=== PATIENT | female | born 1945 | race Caucasian/White ===

== ENCOUNTER → 2017-08-19 | Outpatient (CLI) | payer MEDICARE, BC ==
--- NOTE | 2017-08-19 17:44 | WOMENS IMAGING REPORT ---
EXAM DESCRIPTION: BILAT SCREENING MAMMO W/CAD COMPLETED DATE/TIME: 08/19/2017 1:46 pm REASON FOR STUDY: SCREENING MAMMO Z12.31 ENCNTR SCREEN MAMMOGRAM FOR MALIGNANT NEOPLASM OF KELLY COMPARISON: Multiple since 2008 TECHNIQUE: Standard craniocaudal and mediolateral oblique views of each breast recorded using digita l acquisition. LIMITATIONS: None. FINDINGS: Findings present which are benign by mammographic criteria. No suspicious masses, calcifi cations or architectural distortion. Pertinent benign findings: Old surgical clips deep central left breast. Read with the assistance of CAD. .[facility] - R2 Cenova Version 1.3 .[facility] - R2 Cenova Version 1.3 .[facility] - R2 Cenova Version 2.4 .[facility] [place] R2 Cenova Version 2.4 .[facility] - R2 Junior Net Developer Version 9.2 Benign mammographic findings may include one or more of the following: Smooth masses, popcorn/rim/co arse calcifications, asymmetries, post-procedure changes, and lesions with long-standing stability. IMPRESSION: BENIGN MAMMOGRAPHIC FINDINGS. BIRADS 2 BREAST DENSITY: b. There are scattered areas of fibroglandular density. BIRAD: 2 BENIGN FINDING(S) RECOMMENDATION: ROUTINE SCREENING Please continue yearly bilateral screening mammography in August 2018. Please consider bilateral sc reening tomosynthesis COMMENT: The patient has been notified of the results by letter per MQSA requirements. Additional no tification policies are in place for contacting patient with suspicious or incomplete findings. Quality ID #[id number]: The [employer] recommends an annual screening mammogram for women aged 40 years or over. This facility utilizes a reminder system to ensure that all patients receive reminder letters, and/or direct phone calls for appointments. This includes reminders for routine scr eening mammograms, diagnostic mammograms, or other Breast Imaging Interventions when appropriate. Th is patient will be placed in the appropriate reminder system. The [employer] (ACR) has developed recommendations for screening MRI of the breast s in certain patient populations, to be used in conjunction with mammography. Breast MRI surveillanc e may be appropriate for women with more than 20% lifetime risk of developing breast cancer as deter mined by genetic testing, significant family history of the disease, or history of mantle radiation f or Hodgkins Disease. ACR Practice Guidelines 2008. TECHNICAL DOCUMENTATION: FINDING NUMBER: (1) ASSESSMENT: (1) JOB ID: [id number] [employer]- All Rights Reserved
== END ==
LOC: WI 13:09
PROVIDERS: ATTEND Internal Medicine
DX: Z12.31 Encounter for screening mammogram for malignant neoplasm of breast (principal)
CPT/HCPCS: 77067; G0202

== ENCOUNTER 2018-05-11 10:29 | Emergency (ER) | payer MEDICARE, BC ==
--- NOTE | 2018-05-11 10:53 | ER Document Report ---
ED Medical Screen (RME) - General Chief Complaint: Chest Pain Stated Complaint: CHEST PAIN Mode of Arrival: Wheelchair Information source: Patient Notes: 72 y.o female with a PMHx of presents to the ED with CP of onset this morning about 30 minutes ago. Pt reports pain to her RT sided chest and denies any radiation. Pt reports that she just got over a cold. Pt reports some hot flashes, lightheaded and a "gassy feeling". She denies any hx of LA or stroke. Pt's PCP is Dr. Monroy. I have greeted and performed a rapid initial assessment of the patient. A comprehensive ED assessment and evaluation of the patient, analysis of test results, and completion of the medical decision making process will be conducted by additional ED providers. Physical Exam: Cardiovascular: Regular rate and rhythm. Respiratory: No respiratory distress. Clear and equal breath sounds bilaterally. TRAVEL OUTSIDE OF THE [place] IN LAST 30 DAYS: No - Related Data Allergies/Adverse Reactions: acetaminophen [From Percocet] Allergy (Intermediate, Verified 05/11/18 10:31) oxycodone HCl [From Percocet] Allergy (Intermediate, Verified 05/11/18 10:31) Past Medical History - Past Medical History Cardiac Medical History: Reports: Hx Hypertension Psychiatric Medical History: Reports: Hx Depression Past Surgical History: Reports: Hx Appendectomy, Hx Section - x3, Hx Orthopedic Surgery - hip replacement 2000, Hx Tubal Ligation. Denies: Hx Pacemaker - Immunizations Hx Diphtheria, Pertussis, Tetanus Vaccination: - unknown Physical Exam - Vital signs Vitals: Temp Pulse Resp BP Pulse Ox 97.9 F 87 18 120/75 100 05/11/18 10:43 05/11/18 10:43 05/11/18 10:43 05/11/18 10:43 05/11/18 10:43 Course - Vital Signs Vital signs: Temp Pulse Resp BP Pulse Ox 97.9 F 87 18 120/75 100 05/11/18 10:43 05/11/18 10:43 05/11/18 10:43 05/11/18 10:43 05/11/18 10:43 Doctor's Discharge - Discharge Referrals: ISABELLA MONROY MD [Primary Care Provider] - Follow up as needed Scribe Documentation - Scribe Written by Scribe:: Acosta Topete 05/11/18 1053 acting as scribe for :: Jeffy
--- NOTE | 2018-05-11 11:09 | ER Document Report ---
ED General - General Chief Complaint: Chest Pain Stated Complaint: CHEST PAIN Time Seen by Provider: 05/11/18 10:50 Mode of Arrival: Wheelchair Information source: Patient, Relative Notes: 72-year-old female with hypertension, depression, anxiety presents via private vehicle from home with complaint of right sided chest pain that occurred approximately 1 hour prior to arrival while at rest. Patient states that she had a "episode" where she became flushed, lightheaded, anxious and experienced chest pressure that lasted approximately 40 minutes and self resolved. Patient states that this episode felt very similar to previous anxiety attacks although she cannot tell me what was making her anxious today. She has had multiple prior similar symptoms. She is currently on antidepressant but denies any suicidal or homicidal ideation. Patient states that she recently got over an upper respiratory illness which included nasal congestion, productive cough. Patient denies any fever, chills, nausea, vomiting, current chest pain. She states that she felt better after she passed a lot of gas. TRAVEL OUTSIDE OF THE [place] IN LAST 30 DAYS: No - HPI Onset: Just prior to arrival Onset/Duration: Gradual, Gone Quality of pain: Pressure Severity: None Pain Level: Denies Associated symptoms: Chest pain, Productive cough, Sinus pain/drainage. denies : Fever, Headache, Leg swelling, Nausea, Vomiting Exacerbated by: Denies Relieved by: Denies Similar symptoms previously: Yes Recently seen / treated by doctor: Yes - Related Data Allergies/Adverse Reactions: acetaminophen [From Percocet] Allergy (Intermediate, Verified 05/11/18 10:31) oxycodone HCl [From Percocet] Allergy (Intermediate, Verified 05/11/18 10:31) Past Medical History - General Information source: Patient - Social History Smoking Status: Never Smoker Chew tobacco use (# tins/day): No Frequency of alcohol use: None Drug Abuse: None Lives with: Spouse/Significant other Family History: Reviewed & Not Pertinent Patient has suicidal ideation: No Patient has homicidal ideation: No - Past Medical History Cardiac Medical History: Reports: Hx Hypertension Renal/ Medical History: Denies: Hx Peritoneal Dialysis Psychiatric Medical History: Reports: Hx Depression Past Surgical History: Reports: Hx Appendectomy, Hx Section - x3, Hx Orthopedic Surgery - hip replacement 2000, Hx Tubal Ligation. Denies: Hx Pacemaker - Immunizations Hx Diphtheria, Pertussis, Tetanus Vaccination: - unknown Hx Pneumococcal Vaccination: 11/08/06 Review of Systems - Review of Systems Notes: REVIEW OF SYSTEMS: CONSTITUTIONAL : Denies fever, chills, or sweats. Denies recent illness. Denies weight loss, recent hospitalizations. EENT: Denies visual changes, eye pain. Denies nasal or sinus congestion or discharge. Denies sore throat, oral lesions, difficulty swallowing. CARDIOVASCULAR: Denies chest pain. Denies palpitations. Denies lower extremity edema. RESPIRATORY: Denies cough, cold, or chest congestion. Denies shortness of breath, wheezing. GASTROINTESTINAL: Denies abdominal pain or distention. Denies nausea, vomiting , or diarrhea. Denies blood in vomitus, stools, or per rectum. Denies black, tarry stools. Denies constipation. GENITOURINARY: Denies difficulty urinating, painful urination, frequency, blood in urine, or vaginal discharge. MUSCULOSKELETAL: Denies back or neck pain or stiffness. Denies joint pain or swelling. SKIN: Denies rash, lesions or sores. HEMATOLOGIC : Denies easy bruising or bleeding. LYMPHATIC: Denies swollen glands. NEUROLOGICAL: Denies confusion or altered mental status. Denies passing out or loss of consciousness. Denies dizziness or lightheadedness. Denies headache. Denies weakness or paralysis. Denies problems difficulty with ambulation, slurred speech. Denies sensory loss, numbness, or tingling. Denies seizures. PSYCHIATRIC: Denies anxiety or stress. Denies depression, suicidal ideation, or homicidal ideation. Denies visual or auditory hallucinations. Physical Exam - Vital signs Vitals: Temp Pulse Resp BP Pulse Ox 97.9 F 87 18 120/75 100 05/11/18 10:43 05/11/18 10:43 05/11/18 10:43 05/11/18 10:43 05/11/18 10:43 Interpretation: Normal. No: Hypertensive, Hypoxic, Febrile - Notes Notes: PHYSICAL EXAMINATION: GENERAL: Well-appearing, well-nourished and in no acute distress. HEAD: Atraumatic, normocephalic. EYES: Pupils equal round and reactive to light, extraocular movements intact, conjunctiva are normal. ENT: Nares patent, oropharynx clear without exudates. Moist mucous membranes. NECK: Normal range of motion, supple without lymphadenopathy LUNGS: Breath sounds clear to auscultation bilaterally and equal. No wheezes rales or rhonchi. HEART: Regular rate and rhythm without murmurs ABDOMEN: Soft, nontender, nondistended abdomen. No guarding, no rebound. No masses appreciated. Female : deferred Musculoskeletal: Normal range of motion, no pitting or edema. No cyanosis. NEUROLOGICAL: Cranial nerves grossly intact. Normal speech, normal gait. Normal sensory, motor exams PSYCH: Normal mood, normal affect. SKIN: Warm, Dry, normal turgor, no rashes or lesions noted. Course - Re-evaluation Re-evalutation: Laboratory 05/11/18 05/11/18 05/11/18 11:10 11:10 11:10 WBC 4.8 RBC 4.71 Hgb 14.7 Hct 43.0 MCV 91 MCH 31.2 MCHC 34.2 RDW 14.1 H Plt Count 197 Seg Neutrophils % 67.3 Lymphocytes % 22.5 Monocytes % 7.4 Eosinophils % 1.5 Basophils % 1.3 Absolute Neutrophils 3.2 Absolute Lymphocytes 1.1 Absolute Monocytes 0.4 Absolute Eosinophils 0.1 Absolute Basophils 0.1 Sodium 143.0 Potassium 4.6 Chloride 106 Carbon Dioxide 24 Anion Gap 13 BUN 17 Creatinine 0.97 Est GFR ( Amer) > 60 Est GFR (Non-Af Amer) 56 L Glucose 89 Calcium 9.4 Magnesium 2.2 Total Bilirubin 0.7 Direct Bilirubin 0.4 Neonat Total Bilirubin Not Reportable Neonat Direct Bilirubin Not Reportable Neonat Indirect Bili Not Reportable AST 23 ALT 16 Alkaline Phosphatase 101 Troponin I < 0.012 NT-Pro-B Natriuret Pep 93 Total Protein 7.1 Albumin 4.5 05/11/18 14:55 WBC RBC Hgb Hct MCV MCH MCHC RDW Plt Count Seg Neutrophils % Lymphocytes % Monocytes % Eosinophils % Basophils % Absolute Neutrophils Absolute Lymphocytes Absolute Monocytes Absolute Eosinophils Absolute Basophils Sodium Potassium Chloride Carbon Dioxide Anion Gap BUN Creatinine Est GFR ( Amer) Est GFR (Non-Af Amer) Glucose Calcium Magnesium Total Bilirubin Direct Bilirubin Neonat Total Bilirubin Neonat Direct Bilirubin Neonat Indirect Bili AST ALT Alkaline Phosphatase Troponin I < 0.012 NT-Pro-B Natriuret Pep Total Protein Albumin Chest X-Ray 05/11/18 10:34 IMPRESSION: Obstructive lung disease. No acute infiltrates. 72-year-old female with hypertension, depression, anxiety presents via private vehicle from home with complaint of right sided chest pain that occurred approximately 1 hour prior to arrival while at rest. Patient states that she had a "episode" where she became flushed, lightheaded, anxious and experienced chest pressure that lasted approximately 40 minutes and self resolved. Patient states that this episode felt very similar to previous anxiety attacks although she cannot tell me what was making her anxious today. Patient was seen by myself upon arrival. Vital signs were reviewed. Patient is afebrile, normotensive and not hypoxic. Patient does not appear toxic or dehydrated. They are in no acute distress. Previous medical records and nursing notes reviewed. Patient's initial EKG and troponin were within normal limits. Repeat troponin and repeat EKG were obtained and also within normal limits. Patient has not had recurrence of her chest pain. Patient will follow up with her primary care physician as already scheduled. 05/11/18 13:14 Patient reevaluated. She is resting comfortably and is without chest pain. 05/11/18 16:51 05/11/18 16:54 Heart score is 3 making her a low risk for adverse events in the next 30 days. Patient provided the opportunity to ask questions, and express concerns. Discharge instructions discussed. Patient is agreeable with discharge home. Return indications explained and discussed with the patient who displays understanding. Patient encouraged to return to the emergency department immediately with any concerns. After performing a Medical Screening Examination, I estimate there is LOW risk for RUPTURED ESOPHAGUS, PNEUMOTHORAX, PULMONARY EMBOLISM, ACUTE CORONARY SYNDROME, OR THORACIC AORTIC DISSECTION, thus I consider the discharge disposition reasonable. I have reevaluated this patient multiple times and no significant life threatening changes are noted. The patient and I have discussed the diagnosis and risks, and we agree with discharging home with close follow-up. We also discussed returning to the Emergency Department immediately if new or worsening symptoms occur. We have discussed the symptoms which are most concerning (e.g., bloody sputum, worsening pain or shortness of breath) that necessitate immediate return. - Vital Signs Vital signs: Temp Pulse Resp BP Pulse Ox 97.9 F 87 13 121/67 99 05/11/18 16:01 05/11/18 10:43 05/11/18 16:01 05/11/18 16:01 05/11/18 16:01 - Laboratory Result Diagrams: 05/11/18 11:10 05/11/18 11:10 Laboratory results interpreted by me: 07/04/18 07/04/18 11:10 11:10 RDW 14.1 H Est GFR (Non-Af Amer) 56 L Discharge - Discharge Clinical Impression: Anxiety Chest pain Qualifiers: Chest pain type: other chest pain Qualified Code(s): R07.89 - Other chest pain Condition: Good Disposition: HOME, SELF-CARE Instructions: Chest Pain of Unclear Cause ([facility]) Additional Instructions: Follow up with your physician tomorrow for further care or return to the ED IMMEDIATELY if symptoms worsen or new concerns occur. If you cannot afford to follow up with your primary care physician a list of low cost clinics have been provided at the end of your discharge papers as well. Referrals: ISABELLA PARKS MD [Primary Care Provider] - Follow up tomorrow
--- NOTE | 2018-05-11 11:16 | RADIOLOGY REPORT (SQ) ---
EXAM DESCRIPTION: CHEST SINGLE VIEW COMPLETED DATE/TIME: 05/11/2018 11:07 am REASON FOR STUDY: chest pain COMPARISON: None. EXAM PARAMETERS: NUMBER OF VIEWS: One view. TECHNIQUE: Single frontal radiographic view of the chest acquired. RADIATION DOSE: NA LIMITATIONS: None. FINDINGS: LUNGS AND PLEURA: Lungs are hyperinflated and hyperlucent from obstructive disease. No ac chilkat infiltrates. No pleural effusion. No pneumothorax. MEDIASTINUM AND HILAR STRUCTURES: No masses. Contour normal. HEART AND VASCULAR STRUCTURES: Heart normal in size. Normal vasculature. BONES: No acute findings. HARDWARE: Old surgical clips left breast OTHER: No other significant finding. IMPRESSION: Obstructive lung disease. No acute infiltrates. TECHNICAL DOCUMENTATION: JOB ID: [id number] [employer]- All Rights Reserved Reading location - IP/workstation name: [email or web address]
[2018-05-11 11:26] LABS: ABSOLUTE BASOPHILS # (AUTO) 0.1 10^3/uL (0.0-0.2); ABSOLUTE EOSINOPHILS # (AUTO) 0.1 10^3/uL (0.0-0.6); ABSOLUTE LYMPHOCYTES (AUTO) 1.1 10^3/uL (0.5-4.7); ABSOLUTE MONOCYTES (AUTO) 0.4 10^3/uL (0.1-1.4); ABSOLUTE NEUT (AUTO) 3.2 10^3/uL (1.7-8.2); BASOPHILS % (AUTO) 1.3 % (0-2); EOSINOPHILS % (AUTO) 1.5 % (0-6); HEMOGLOBIN 14.7 g/dL (12.0-15.5); LYMPHOCYTES % (AUTO) 22.5 % (13-45); MEAN CORPUSCULAR HEMOGLOBIN 31.2 pg (27.0-33.4); MEAN CORPUSCULAR HGB CONC 34.2 g/dL (32.0-36.0); MEAN CORPUSCULAR VOLUME 91 fl (80-97); MONOCYTES % (AUTO) 7.4 % (3-13); PLATELET COUNT 197 10^3/uL (150-450); RED BLOOD COUNT 4.71 10^6/uL (3.72-5.28); RED CELL DISTRIBUTION WIDTH 14.1 % (11.5-14.0); SEGMENTED NEUTROPHILS % (AUTO) 67.3 % (42-78); TOTAL CELLS COUNTED % (AUTO) 100 %; WHITE BLOOD COUNT 4.8 10^3/uL (4.0-10.5)
[2018-05-11] MEDS ORDERED: ASPIRIN 81 MG TABLET, CHEWABLE PO ONE (11:30)
[2018-05-11 11:43] LABS: ALANINE AMINOTRANSFERASE 16 U/L (9-52); ALBUMIN 4.5 g/dL (3.5-5.0); ALKALINE PHOSPHATASE 101 U/L (38-126); ANION GAP 13 (5-19); ASPARTATE AMINO TRANSFERASE 23 U/L (14-36); BILIRUBIN,DIRECT 0.4 mg/dL (0.0-0.4); BILIRUBIN,TOTAL 0.7 mg/dL (0.2-1.3); BLOOD UREA NITROGEN 17 mg/dL (7-20); CALCIUM 9.4 mg/dL (8.4-10.2); CARBON DIOXIDE 24 mmol/L (22-30); CHLORIDE 106 mmol/L (98-107); GLUCOSE 89 mg/dL (75-110); POTASSIUM 4.6 mmol/L (3.6-5.0); TOTAL PROTEIN 7.1 g/dL (6.3-8.2)
[2018-05-11 11:54] LABS: NT PRO BNP 93 pg/mL (5-900)
[2018-05-11 11:55] LABS: TROPONIN I < 0.012 ng/mL
--- NOTE | 2018-05-11 14:14 | EKG REPORT ---
SEVERITY:- BORDERLINE ECG - SINUS RHYTHM LEFT AXIS DEVIATION CONSIDER ANTERIOR INFARCT BORDERLINE T ABNORMALITIES, INFERIOR LEADS : Confirmed by: Jhon Torres MD 11-May-2018 14:14:08
[2018-05-11 16:03] VITALS: BP 121/67
--- NOTE | 2018-05-11 16:43 | EKG REPORT ---
SEVERITY:- OTHERWISE NORMAL ECG - SINUS RHYTHM BORDERLINE LEFT AXIS DEVIATION : Confirmed by: Jhon Torres MD 11-May-2018 16:42:37
== END 2018-05-11 16:16 | disposition home or self-care (01) ==
LOC: ER 10:29
DX: F41.9 Anxiety disorder, unspecified (principal); R07.89 Other chest pain; I10 Essential (primary) hypertension; R42 Dizziness and giddiness; F32.9 Major depressive disorder, single episode, unspecified; J34.89 Other specified disorders of nose and nasal sinuses; Z88.5 Allergy status to narcotic agent; Z79.899 Other long term (current) drug therapy; Z88.6 Allergy status to analgesic agent
CPT/HCPCS: 93005; 99285; 36415; 83735; 85025; 80053; 84484; 83880; 71045; 93010; A9270

== ENCOUNTER → 2019-04-13 | Outpatient (CLI) | payer MEDICARE, BC ==
--- NOTE | 2019-04-13 13:13 | WOMENS IMAGING REPORT ---
EXAM DESCRIPTION: BILAT SCREENING MAMMO W/CAD COMPLETED DATE/TIME: 04/13/2019 12:56 pm REASON FOR STUDY: Z12.31 ENCOUNTER FOR SCREENING MAMMOGRAM FOR MALIGNANT NEOPLASM OF BREAST Z12.39 ENCOUNTER FOR OTH SCREENING FOR MALIGNANT NEOPLASM OF Z12.31 ENCNTR SCREEN MAMMOGRAM FOR MALIGNANT N EOPLASM OF KELLY COMPARISON: 08/19/2017 and 07/01/2016. EXAM PARAMETERS: Standard craniocaudal and mediolateral oblique views of each breast recorded using digital acquisition. Read with the assistance of CAD. .[facility] - R2 [employer]st Version 9.2 LIMITATIONS: None. FINDINGS: Findings present which are benign by mammographic criteria. No suspicious masses, calcifi cations or architectural distortion. Pertinent benign findings: Stable surgical changes in the left breast. Benign mammographic findings may include one or more of the following: Smooth masses, popcorn/rim/co arse calcifications, asymmetries, post-procedure changes, and lesions with long-standing stability. IMPRESSION: ASSESSMENT: BENIGN MAMMOGRAPHIC FINDINGS. BIRADS 2 BREAST DENSITY: b. There are scattered areas of fibroglandular density. BIRAD: 2 BENIGN FINDING(S) RECOMMENDATION: ROUTINE SCREENING COMMENT: The patient has been notified of the results by letter per MQSA requirements. Additional no tification policies are in place for contacting patient with suspicious or incomplete findings. Quality ID #[id number]: The [employer] recommends an annual screening mammogram for women aged 40 years or over. This facility utilizes a reminder system to ensure that all patients receive reminder letters, and/or direct phone calls for appointments. This includes reminders for routine scr eening mammograms, diagnostic mammograms, or other Breast Imaging Interventions when appropriate. Th is patient will be placed in the appropriate reminder system. TECHNICAL DOCUMENTATION: FINDING NUMBER: (1) ASSESSMENT: (1) JOB ID: [id number] [employer]- All Rights Reserved Reading location - IP/workstation name: [email or web address]
== END ==
LOC: WI 04-10 13:34
PROVIDERS: ATTEND Internal Medicine
DX: Z12.31 Encounter for screening mammogram for malignant neoplasm of breast (principal)
CPT/HCPCS: 77067

== ENCOUNTER → 2020-01-30 | Outpatient (CLI) | payer MEDICARE, BC ==
--- NOTE | 2020-01-30 14:12 | RADIOLOGY REPORT (SQ) ---
EXAM DESCRIPTION: CHEST PA/LATERAL COMPLETED DATE/TIME: 01/30/2020 12:14 pm REASON FOR STUDY: CHEST WALL PAIN ACUTE COMPARISON: None. EXAM PARAMETERS: NUMBER OF VIEWS: two views TECHNIQUE: Digital Frontal and Lateral radiographic views of the chest acquired. RADIATION DOSE: NA LIMITATIONS: none FINDINGS: LUNGS AND PLEURA: No opacities, masses or pneumothorax. No pleural effusion. MEDIASTINUM AND HILAR STRUCTURES: No masses or contour abnormalities. HEART AND VASCULAR STRUCTURES: Heart normal size. No evidence for failure. BONES: No acute findings. HARDWARE: None in the chest. OTHER: No other significant finding. IMPRESSION: NO SIGNIFICANT RADIOGRAPHIC FINDING IN THE CHEST. TECHNICAL DOCUMENTATION: JOB ID: [id number] 2010 [employer]- All Rights Reserved Reading location - IP/workstation name: [email or web address]
--- NOTE | 2020-01-30 14:14 | RADIOLOGY REPORT (SQ) ---
EXAM DESCRIPTION: RIBS RIGHT W/O PA CHEST COMPLETED DATE/TIME: 01/30/2020 12:14 pm REASON FOR STUDY: CHEST WALL PAIN ACUTE R07.89 OTHER CHEST PAIN COMPARISON: None. NUMBER OF VIEWS: Four views. TECHNIQUE: Images acquired of the right ribs in the area of focal concern. LIMITATIONS: None. FINDINGS: RIBS: No acute displaced fracture. No worrisome bone lesions. LUNGS: Limited exam. No obvious pneumothorax. No pleural effusion. OTHER: No other significant finding. IMPRESSION: NO ACUTE DISPLACED RIB FRACTURE. COMMENT: SITE OF TRAUMA/COMPLAINT MARKED/STAMP COMPLETED: NO. TECHNICAL DOCUMENTATION: JOB ID: [id number] 2010 [employer]- All Rights Reserved Reading location - IP/workstation name: [email or web address]
== END ==
LOC: OD 11:58
PROVIDERS: ATTEND Internal Medicine
DX: R07.89 Other chest pain (principal)
CPT/HCPCS: 71046

== ENCOUNTER → 2020-04-23 | Outpatient (CLI) | payer MEDICARE, BC ==
--- NOTE | 2020-04-23 17:00 | WOMENS IMAGING REPORT ---
EXAM DESCRIPTION: BILAT SCREENING MAMMO W/CAD IMAGES COMPLETED DATE/TIME: 04/23/2020 2:53 pm REASON FOR STUDY: Z12.31 SCREENING MAMMO Z12.31 ENCNTR SCREEN MAMMOGRAM FOR MALIGNANT NEOPLASM OF B RE COMPARISON: Multiple since 2008 EXAM PARAMETERS: Standard craniocaudal and mediolateral oblique views of each breast recorded using digital acquisition. Read with the assistance of CAD. .[facility] - PCA [employer] Art Instructor Version 9.2 LIMITATIONS: None. FINDINGS: Findings present which are benign by mammographic criteria. No suspicious masses, calcifi cations or architectural distortion. Pertinent benign findings: Left breast surgical clips are unchanged. Benign mammographic findings may include one or more of the following: Smooth masses, popcorn/rim/co arse calcifications, asymmetries, post-procedure changes, and lesions with long-standing stability. IMPRESSION: BENIGN MAMMOGRAPHIC FINDINGS. BIRADS 2 BREAST DENSITY: a. The breasts are almost entirely fatty. BIRAD: ASSESSMENT: 2 BENIGN FINDING(S) RECOMMENDATION: ROUTINE SCREENING COMMENT: The patient has been notified of the results by letter per [place] requirements. Additional no tification policies are in place for contacting patient with suspicious or incomplete findings. Quality ID #[id number]: The [employer] recommends an annual screening mammogram for women aged 40 years or over. This facility utilizes a reminder system to ensure that all patients receive reminder letters, and/or direct phone calls for appointments. This includes reminders for routine scr eening mammograms, diagnostic mammograms, or other Breast Imaging Interventions when appropriate. Th is patient will be placed in the appropriate reminder system. TECHNICAL DOCUMENTATION: FINDING NUMBER: (1) ASSESSMENT: (1) JOB ID: [id number] 2010 [employer]- All Rights Reserved Reading location - IP/workstation name: [email or web address]
== END ==
LOC: WI 14:05
PROVIDERS: ATTEND Internal Medicine
DX: Z12.31 Encounter for screening mammogram for malignant neoplasm of breast (principal)
CPT/HCPCS: 77067

== ENCOUNTER 2020-05-21 18:28 | Observation (INO) | payer MEDICARE, BC ==
[2020-05-21] MEDS ORDERED: MORPHINE SULFATE 10 MG/ML INJ IV ONE (18:45)
--- NOTE | 2020-05-21 19:31 | ER Document Report ---
ED Hip Pain/Injury - General Mode of Arrival: Medic Information source: Patient TRAVEL OUTSIDE OF THE [place] IN LAST 30 DAYS: No - Related Data Home Medications: Topiramate. Aripiprazole. Trazedone. Clonozepam <DONALD SOUZA - Last Filed: 05/21/20 20:07> <GABRIELLE POMPA - Last Filed: 05/21/20 20:18> - General Chief Complaint: Hip Injury Stated Complaint: RIGHT HIP PAIN Time Seen by Provider: 05/21/20 19:08 Primary Care Provider: ISABELLA PARKS MD [Primary Care Provider] - Follow up as needed Notes: 74-year-old female with past medical history significant for hypertension, diabetes, anxiety presents to the emergency room complaining of right hip pain. 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 Patient has had 3 hip replacements on her right hip so far. Last one in 2016. States she has had dislocations of her hip prior to her previous hip replacement and has always had to go to the operating room to have the hip put back in. (DNOALD SOUZA) - Related Data Allergies/Adverse Reactions: acetaminophen [From Percocet] Allergy (Intermediate, Verified 05/11/18 10:31) oxycodone HCl [From Percocet] Allergy (Intermediate, Verified 05/11/18 10:31) Past Medical History - General Information source: Patient - Social History Smoking Status: Never Smoker Frequency of alcohol use: None Drug Abuse: None Family History: Reviewed & Not Pertinent - Past Medical History Cardiac Medical History: Reports: Hx Hypertension Renal/ Medical History: Denies: Hx Peritoneal Dialysis Psychiatric Medical History: Reports: Hx Depression Past Surgical History: Reports: Hx Appendectomy, Hx Section - x3, Hx Orthopedic Surgery - hip replacement 2000, Hx Tubal Ligation. Denies: Hx Pacemaker - Immunizations Hx Diphtheria, Pertussis, Tetanus Vaccination: - unknown Hx Pneumococcal Vaccination: 11/08/06 <DONALD SOUZA - Last Filed: 05/21/20 20:07> Review of Systems - Review of Systems Constitutional: No symptoms reported Cardiovascular: No symptoms reported Respiratory: No symptoms reported Musculoskeletal: Joint pain Skin: No symptoms reported Neurological/Psychological: No symptoms reported -: Yes All other systems reviewed and negative <DONALD SOUZA - Last Filed: 05/21/20 20:07> Physical Exam - General General appearance: Appears well, Alert In distress: Moderate - Respiratory Respiratory status: No respiratory distress Chest status: Nontender Breath sounds: Normal Chest palpation: Normal - Cardiovascular Rhythm: Regular Heart sounds: Normal auscultation Murmur: No - Extremities General upper extremity: Normal inspection Hip: Tender - Right lateral hip, Dislocation - Right leg is shortened and rotated outward. - Neurological Neuro grossly intact: Yes Cognition: Normal Orientation: AAOx4 [place] Coma Scale Verbal: Oriented [place] Coma Scale Motor: Obeys Commands Speech: Normal <DONALD SOUZA - Last Filed: 05/21/20 20:07> - Vital signs Vitals: Temp 98.2 F 05/21/20 19:05 - Neurological Notes: Positive right radial pulse. Capillary refill less than 3 seconds. (DONALD SOUZA) Course - Diagnostic Test Radiology reviewed: Reports reviewed - Consults Time consulted: 19:41 Consulted provider: will see as inpatient <DONALD SOUZA - Last Filed: 05/21/20 20:07> - Re-evaluation Re-evalutation: 05/21/20 19:42 Discussed x-ray findings with family. Aware of need for admission. Agreeable for admission. Labs, EKG, and chest x-ray ordered. (DONALD SOUZA) - Vital Signs Vital signs: Temp Pulse Resp BP Pulse Ox 98.2 F 73 14 111/64 95 05/21/20 19:17 05/21/20 19:17 05/21/20 19:17 05/21/20 19:17 05/21/20 19:17 - Consults Reason for consultation: 05/21/20 19:41 To discuss x-ray findings. Accepts admission will take her to the OR in the morning. (DONALD SOUZA) Discharge - Discharge Unit Admitted: Medical Floor <DONALD SOUZA - Last Filed: 05/21/20 20:07> - Discharge Admitting Provider: Surgicalist Unit Admitted: Surgical Floor <GABRIELLE POMPA - Last Filed: 05/21/20 20:18> - Discharge Clinical Impression: Dislocation of right hip Qualifiers: Encounter type: initial encounter Qualified Code(s): S73.004A - Unspecified dislocation of right hip, initial encounter Condition: Stable Disposition: ADMITTED INPATIENT Referrals: ISABELLA PARKS MD [Primary Care Provider] - Follow up as needed
--- NOTE | 2020-05-21 19:33 | RADIOLOGY REPORT (SQ) ---
EXAM DESCRIPTION: HIP RIGHT AP/LATERAL IMAGES COMPLETED DATE/TIME: 05/21/2020 7:17 pm REASON FOR STUDY: fall COMPARISON: 03/29/2012 NUMBER OF VIEWS: Two views. TECHNIQUE: AP pelvis and additional frog-leg view of the right hip. LIMITATIONS: None. FINDINGS: MINERALIZATION: Normal. RIGHT HIP: Total right hip arthroplasty. The femoral component is dislocated superior to the acetab ular component. These findings suggest right femoral head dislocation. LEFT HIP: No fracture or dislocation. PUBIS AND ISCHIUM: No fracture. PELVIS: No fracture. SACRUM: No fracture or dislocation. No worrisome bone lesions. LOWER LUMBAR SPINE: Degenerative changes lower lumbar spine. SOFT TISSUES: No findings. OTHER: No other significant finding. IMPRESSION: 1. Total right hip arthroplasty. Right femoral head dislocation. 2. No acute fracture. TECHNICAL DOCUMENTATION: JOB ID: [id number] 2010 [employer]- All Rights Reserved Reading location - IP/workstation name: [email or web address]
--- NOTE | 2020-05-21 20:23 | RADIOLOGY REPORT (SQ) ---
EXAM DESCRIPTION: XR CHEST 1 VIEW COMPLETED DATE/TME: 05/21/2020 19:29 CLINICAL HISTORY: 74 years, Female, pre op COMPARISON: X-ray chest 01/30/2020 NUMBER OF VIEWS: TECHNIQUE: LIMITATIONS: None. FINDINGS: No evidence of pulmonary infiltrate or pleural effusion. The heart and mediastinum are unremarkable. Pulmonary vascularity appears normal. There is tortuosity of the thoracic aorta. There is no significant change, as compared with the prior x-ray(s). IMPRESSION: No acute finding. copyright 2010 [employer]- All Rights Reserved
[2020-05-21 21:26] LABS: ABSOLUTE MONOCYTES (AUTO) 0.5 10^3/uL (0.1-1.4); ABSOLUTE NEUT (AUTO) 6.5 10^3/uL (1.7-8.2); BASOPHILS % (AUTO) 0.5 % (0-2); EOSINOPHILS % (AUTO) 0.3 % (0-6); HEMATOCRIT 38.6 % (36.0-47.0); HEMOGLOBIN 12.8 g/dL (12.0-15.5); LYMPHOCYTES % (AUTO) 12.9 % (13-45); MEAN CORPUSCULAR HEMOGLOBIN 31.1 pg (27.0-33.4); MEAN CORPUSCULAR HGB CONC 33.3 g/dL (32.0-36.0); MEAN CORPUSCULAR VOLUME 94 fl (80-97); MONOCYTES % (AUTO) 5.6 % (3-13); PLATELET COUNT 167 10^3/uL (150-450); RED BLOOD COUNT 4.12 10^6/uL (3.72-5.28); RED CELL DISTRIBUTION WIDTH 14.3 % (11.5-14.0); SEGMENTED NEUTROPHILS % (AUTO) 80.7 % (42-78); TOTAL CELLS COUNTED % (AUTO) 100 %; WHITE BLOOD COUNT 8.1 10^3/uL (4.0-10.5)
[2020-05-21 21:31] LABS: INTERNATIONAL RATION (INR) 1.04; PROTHROMBIN TIME 13.6 SEC (11.4-15.4)
[2020-05-21 21:41] LABS: ALBUMIN 3.8 g/dL (3.5-5.0); ALKALINE PHOSPHATASE 100 U/L (38-126); ANION GAP 5 (5-19); ASPARTATE AMINO TRANSFERASE 27 U/L (14-36); BILIRUBIN,TOTAL 0.3 mg/dL (0.2-1.3); BLOOD UREA NITROGEN 19 mg/dL (7-20); CARBON DIOXIDE 25 mmol/L (22-30); CHLORIDE 107 mmol/L (98-107); GLUCOSE 123 mg/dL (75-110); POTASSIUM 3.8 mmol/L (3.6-5.0); TOTAL PROTEIN 6.5 g/dL (6.3-8.2)
--- NOTE | 2020-05-21 21:51 | EKG REPORT ---
SEVERITY:- BORDERLINE ECG - SINUS RHYTHM LEFT AXIS DEVIATION BORDERLINE T ABNORMALITIES, INFERIOR LEADS : Confirmed by: Jostin Watson MD 21-May-2020 21:50:22
[2020-05-22] MEDS ORDERED: ONDANSETRON HCL INJ/PF 4 MG/2 ML SDV IV PRN (01:15)
[2020-05-22] MEDS ORDERED: RINGERS SOLUTION,LACTATED 1,000 ML IV PRN (01:15)
[2020-05-22] MEDS: MORPHINE SULFATE 10 MG/ML INJ IV PRN ×2 (01:30→04:16)
[2020-05-22] MEDS ORDERED: DEXTROSE 50%-WATER 25 GM/50 ML DISP.SYRIN IV PRN ×2 (04:36)
[2020-05-22] MEDS ORDERED: DEXTROSE 40% GEL 15 GM TUBE PO PRN ×2 (04:36)
[2020-05-22] MEDS ORDERED: GLUCAGON,HUMAN RECOMB 1 MG INJ SUBCUT PRN (04:36)
[2020-05-22 05:53] LABS: APPEARANCE,URINE CLEAR; BILIRUBIN,URINE NEGATIVE (NEGATIVE); COLOR,URINE YELLOW; GLUCOSE, URINE NEGATIVE (NEGATIVE); KETONES,URINE NEGATIVE (NEGATIVE); LEUKOCYTE ESTERASE,URINE TRACE (NEGATIVE); NITRITE,URINE POSITIVE (NEGATIVE); PROTEIN,URINE NEGATIVE (NEGATIVE); URINE SPECIFIC GRAVITY 1.008; UROBILINOGEN,URINE NEGATIVE mg/dL (<2.0)
--- NOTE | 2020-05-22 07:40 | PDOC H&P ---
History of Present Illness Admission Date/PCP: 05/21/20 20:18 ISABELLA PARKS MD History of Present Illness: KATINA COOMBS is a 74 year old female 74-year-old white female known to me from a previous right hip dislocation in 2011 which was treated with a closed reduction. Patient subsequent undergone a revision in [address] Fisher in [place]. 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 She presented to the emergency room with a dislocated right prosthetic hip and is admitted to the orthopedic service for management. Patient is a household ambulator with a walker lives with her . Past Medical History Cardiac Medical History: Reports: Hypertension Psychiatric Medical History: Reports: Depression - pt taking meds currently Past Surgical History Past Surgical History: Reports: Appendectomy, Section - x3, Orthopedic Surgery - hip replacement 2000, Tubal Ligation Denies: Pacemaker Social History Information Source: Patient, [facility] Records Lives with: Spouse/Significant other Smoking Status: Never Smoker Electronic Cigarette use?: No Frequency of Alcohol Use: None Hx Recreational Drug Use: No Hx Prescription Drug Abuse: No - Advance Directive Resuscitation Status: Full Code Family History Family History: Reviewed & Not Pertinent Parental Family History Reviewed: No Children Family History Reviewed: No Sibling(s) Family History Reviewed.: No Medication/Allergy Home Medications: Aripiprazole 10 mg PO DAILY 05/11/18 Carbidopa/Levodopa [Carbidopa-Levo ER 50-200 Tab] 1 tab PO TID 05/11/18 Clonazepam 2 mg PO DAILY 05/11/18 Polyethylene Glycol [Polyox Wsr-301] 1 gm MC DAILY 05/11/18 Trazodone HCl 150 mg PO DAILY 05/11/18 Allergies/Adverse Reactions: acetaminophen [From Percocet] Allergy (Intermediate, Verified 05/11/18 10:31) oxycodone HCl [From Percocet] Allergy (Intermediate, Verified 05/11/18 10:31) Review of Systems All systems: as per PMH Physical Exam Vital Signs: Temp Pulse Resp BP Pulse Ox 36.7 C 88 18 117/63 96 05/21/20 23:56 05/21/20 23:56 05/21/20 23:56 05/21/20 23:56 05/21/20 23:56 Intake & Output 05/21/20 05/22/20 05/23/20 06:59 06:59 06:59 Intake Total 0 Output Total 0 Balance 0 Weight 76 kg Physical Exam: Middle-aged white female lying in a hospital bed. Patient is conversant and seems appropriate. History can be somewhat sketchy and I wonder if there is memory problems. General appearance: PRESENT: no acute distress, mild distress Head exam: PRESENT: normocephalic Respiratory exam: PRESENT: unlabored Cardiovascular exam: PRESENT: RRR Pulses: PRESENT: +1 pedal pulses bilateral Vascular exam: PRESENT: normal capillary refill GI/Abdominal exam: PRESENT: soft Rectal exam: PRESENT: deferred Extremities exam: PRESENT: other - Right lower extremity is shortened and i nternally rotated. Distal neurovascular semination is intact. Results Laboratory Results: 05/21/20 21:05 05/21/20 21:05 05/21/20 05/21/20 05/22/20 21:05 21:05 05:08 WBC 8.1 RBC 4.12 Hgb 12.8 Hct 38.6 MCV 94 MCH 31.1 MCHC 33.3 RDW 14.3 H Plt Count 167 Seg Neutrophils % 80.7 H Sodium 137.0 Potassium 3.8 Chloride 107 Carbon Dioxide 25 Anion Gap 5 BUN 19 Creatinine 1.12 Est GFR ( Amer) 57 L Glucose 123 H Calcium 9.0 Total Bilirubin 0.3 AST 27 Alkaline Phosphatase 100 Total Protein 6.5 Albumin 3.8 Urine Color YELLOW Urine Appearance CLEAR Urine pH 7.0 Ur Specific [place] 1.008 Urine Protein NEGATIVE Urine Glucose (UA) NEGATIVE Urine Ketones NEGATIVE Urine Blood SMALL H Urine Nitrite POSITIVE H Ur Leukocyte Esterase TRACE H Urine WBC (Auto) 7 Urine RBC (Auto) 3 Impressions: Hip/Pelvis X-Ray 05/21/20 18:46 IMPRESSION: 1. Total right hip arthroplasty. Right femoral head dislocation. 2. No acute fracture. Chest X-Ray 05/21/20 19:29 IMPRESSION: No acute finding. copyright 2010 [employer]- All Rights Reserved Status: Imported from PACS Assessment & Plan - Diagnosis (1) Dislocation of right hip Qualifiers: Encounter type: initial encounter Qualified Code(s): S73.004A - Unspecified dislocation of right hip, initial encounter Is this a current diagnosis for this admission?: Yes Plan: Plan will be for a an attempted closed reduction under conscious sedation in the operating room with fluoroscopic guidance. I explained to the patient and her that if this were to prove unsuccessful that my plan would be to then have the patient transported to [place] as opposed to proceeding to an open reduction. The rationale for this is that we do not know the specifics of the indwelling hardware nor do we have compatible hardware for revision of any of these components at this time. - Time Time Spent: 50 to 70 Minutes Anticipated discharge: Home Within: within 24 hours
[2020-05-22] MEDS ORDERED: DIPHENHYDRAMINE HCL 50 MG/ML VIAL IV PRN (08:07)
[2020-05-22] MEDS ORDERED: FENTANYL CITRATE INJ/PF 100 MCG/2 ML AMPUL IV PRN ×3 (08:07)
[2020-05-22] MEDS ORDERED: MEPERIDINE HCL/PF INJ 25 MG/1 ML DISP.SYRIN IV PRN (08:07)
[2020-05-22] MEDS ORDERED: PROMETHAZINE HCL INJ 25 MG/1 ML VIAL IV PRN ×2 (08:07)
--- NOTE | 2020-05-22 08:07 | Operative Report ---
Operative Report DATE OF SURGERY: 05/22/20 PREOPERATIVE DIAGNOSIS: Dislocated prosthetic right hip OPERATION: Closed reduction right hip SURGEON: ERWIN PÉREZ ANESTHESIA: Moderate Sedation PROCEDURE: With the patient supine and operating table the right lower extremities manipulated under fluoroscopic guidance to affect an anatomic reduction of the hip joint. The hip was placed through a range of motion in a reduced position and seems to have instability with 90 degrees of flexion, 0 abduction, and approximately 30 degrees of internal rotation. At the end of the case leg lengths are equal.
--- NOTE | 2020-05-22 08:13 | Discharge Summary ---
Discharge Summary (SDC) - Discharge Final Diagnosis: Right hip dislocation Date of Surgery: 05/22/20 Discharge Date: 05/22/20 Condition: Good Treatment or Instructions: Weightbearing as tolerated ambulation. Hip abduction pillow in place. Follow- up with Dr. Fisher in [place] Prescriptions: Hydrocodone/Acetaminophen [[place] 5-325 mg Tablet] 1 tab PO Q6 PRN #24 tablet PRN Reason: Referrals: ISABELLA PARKS MD [Primary Care Provider] - Follow up as needed Discharge Diet: Regular Respiratory Treatments at Home: Deep Breathing/Coughing Discharge Activity: Balance Activity w/Rest, No Driving Adaptive Devices on Discharge: Rolling Walker Report the Following to Your Physician Immediately: Shortness of Breath, Fever over 101 Degrees
--- NOTE | 2020-05-22 09:42 | RADIOLOGY REPORT (SQ) ---
EXAM DESCRIPTION: NO CHG FLUORO; HIP IN OPERATING RM IMAGES COMPLETED DATE/TIME: 05/22/2020 8:22 am REASON FOR STUDY: CLOSED REDUCTION RIGHT HIP ASSISTED WITH FLUORO IN OR COMPARISON: None. PROCEDURE: Limited intraoperative fluoroscopic images obtained to evaluate progress. Please see ope rative report. FLUOROSCOPY TIME: 0.8 minutes 2 Images saved to PACS TECHNIQUE: Intra-operative images acquired during surgical procedure to evaluate progress. NUMBER OF IMAGES: 2 LIMITATIONS: None. FINDINGS: Limited intraoperative fluoroscopic images obtained to evaluate progress. Please see oper ative report for detailed description. IMPRESSION: IMAGE(S) OBTAINED DURING PROCEDURE. COMMENT: Quality ID [id number]: Final reports for procedures using fluoroscopy that document radiation exp osure indices, or exposure time and number of fluorographic images (if radiation exposure indices are not available) Please consult full operative report of the attending physician for description of the procedure. TECHNICAL DOCUMENTATION: JOB ID: [id number] 2010 [employer]- All Rights Reserved Reading location - IP/workstation name: [email or web address]
--- NOTE | 2020-05-22 09:42 | RADIOLOGY REPORT (SQ) ---
EXAM DESCRIPTION: NO CHG FLUORO; HIP IN OPERATING RM IMAGES COMPLETED DATE/TIME: 05/22/2020 8:22 am REASON FOR STUDY: CLOSED REDUCTION RIGHT HIP ASSISTED WITH FLUORO IN OR COMPARISON: None. PROCEDURE: Limited intraoperative fluoroscopic images obtained to evaluate progress. Please see ope rative report. FLUOROSCOPY TIME: 0.8 minutes 2 Images saved to PACS TECHNIQUE: Intra-operative images acquired during surgical procedure to evaluate progress. NUMBER OF IMAGES: 2 LIMITATIONS: None. FINDINGS: Limited intraoperative fluoroscopic images obtained to evaluate progress. Please see oper ative report for detailed description. IMPRESSION: IMAGE(S) OBTAINED DURING PROCEDURE. COMMENT: Quality ID [id number]: Final reports for procedures using fluoroscopy that document radiation exp osure indices, or exposure time and number of fluorographic images (if radiation exposure indices are not available) Please consult full operative report of the attending physician for description of the procedure. TECHNICAL DOCUMENTATION: JOB ID: [id number] 2010 [employer]- All Rights Reserved Reading location - IP/workstation name: [email or web address]
[2020-05-22 12:00] VITALS: BP 117/63
== END 2020-05-22 13:16 | disposition home or self-care (01) ==
LOC: ER 18:28 → EH 20:18 → INTOOBSV 20:18 → 4N 23:46
PROVIDERS: ADMIT Orthopaedic Surgery; ATTEND Orthopaedic Surgery
DX: T84.020A Dislocation of internal right hip prosthesis, initial encounter (principal); X50.1XXA Overexertion from prolonged static or awkward postures, initial encounter; Z03.818 Encounter for observation for suspected exposure to other biological agents ruled out; F32.9 Major depressive disorder, single episode, unspecified; Z79.899 Other long term (current) drug therapy
CPT/HCPCS: 93005; 99285; 96374; 36415; 85025; 85610; 80053; 81001; 71045; 73502; 73501; 93010; 27265; U0003; J2270 ×2; J7120; C9803; 01200; 87635; J2704; J3010; J3490